=== PATIENT | female | born 1985 | race Caucasian/White ===

== ENCOUNTER → 2016-12-28 | Day surgery (SDC) | payer BC ==
[~2016-12-28] VITALS: Ht 167.6 cm; Wt 81.6 kg
[2016-12-28] VITALS (9 sets, daily range): BP systolic 114–135; BP diastolic 62–81
[~2016-12-28] MED LIST: DiphenhydrAMINE 50mg/ml Inj IVP PRN; HYDROmorphone 1mg/ml Carpuject SUBQ PRN; Hydromorphone 0.5mg/0.5ml inj IVP PRN; Ketorolac 30mg Inj IV PRN; Ketorolac 30mg Inj ONE; LR 1000ml 1,000 ML IVLG SCH; LR 1000ml ONE; Meperidine 25mg/ml Inj IV PRN; Metoclopramide 10mg/2ml Inj IVP PRN; Midazolam 2mg/2ml Inj ONE; NKM; Propofol 10mg/ml 20ml IV ONE; Sorbitol 2000ml Irrigation IRRIG ONE; Sterile Water Irrig 1000ml IRRIG ONE; cefOXitin 1gm Inj ONE; cefOXitin Sod 2 GM in D5W 110 ML IVPB ONE; fentaNYL 100 mcg/2 mL IV ONE
--- NOTE | 2016-12-28 02:08 | History and Physical Report ---
DATE OF ADMISSION: 12/28/2016 PREOPERATIVE DIAGNOSES: Heavy bleeding with multiple submucosal fibroids. HISTORY OF PRESENT ILLNESS: This patient has been my patient for the last couple of years. She presented to me during . Post delivery when she began to menstruate, she noted much heavier bleeding and presented complaining of heavy regular periods. She also is desirous of . On examination, her uterus was enlarged and irregular. An ultrasound was performed on 11/29/2016 consistent with multiple fibroids, largest 3.6 cm and at least two were submucosal. The patient was consented and decision was made to proceed with hysteroscopic resection of fibroids. PAST MEDICAL HISTORY: None. PAST SURGICAL HISTORY: x1. ALLERGIES: None. SOCIAL HISTORY: The patient does not drink or smoke. She lives with her and two young kids. PHYSICAL EXAMINATION: VITAL SIGNS: Height 6 feet and 4 inches, weight 205, blood pressure 144/88, heart rate 78, respiratory rate 20. HEAD AND NECK: Pupils are equal and reactive to light. LUNGS: Clear to auscultation bilaterally. CARDIAC: Regular rate and rhythm. ABDOMEN: Soft, nondistended, and nontender. PELVIC: A 14-week fibroid irregular uterus. Bilateral adnexa within normal limits. RECTAL: No masses. No nodularities. EXTREMITIES: No cords. No cyanosis. No edema. LABORATORY AND DIAGNOSTIC DATA: CBC on 12/24/2016 consistent with white count 9.3, hemoglobin 12.2, and platelets 362,000. The patient's beta-HCG is negative. ASSESSMENT: This is a 31-year-old G2, P2 with symptomatic uterine fibroid most likely submucosal. PLAN: Hysteroscopy and resection of submucosal fibroid with a resectoscope. Rima Wisdom M.D. DR: Gillian JOB#: [id number] CC:
--- NOTE | 2016-12-28 07:48 | Anethesia Preoperative Eval ---
Anesthesia Pre-op PMH/ROS General Date of Evaluation: Dec 28, 2016 Time of Evaluation: 07:48 Anesthesiologist: Raymundo ASA Score: ASA 2 Mallampati Score Class I : Soft palate, uvula, fauces, pillars visible Class II: Soft palate, uvula, fauces visible Class III: Soft palate, base of uvula visible Class IV: Only hard plate visible Mallampati Classification: Class II Surgeon: Artis Diagnosis: Uterine fibroids Surgical Procedure: D&C Hysteroscopy Fibroid resection Anesthesia History: none Family History: no anesthesia problems Allergies: Coded Allergies: No Known Allergies (Unverified , 12/26/16) Medications: see eMAR Past Medical History Cardiovascular: Denies: CAD, HTN, [place], arrhythmia, other, valve dz Pulmonary: Denies: COPD, PURNIMA, asthma, other Gastrointestinal/Genitourinary: Reports: GERD - mild, Denies: CRI, ESRD, other Neurologic/Psychiatric: Denies: CVA, TIA, dementia, depression/anxiety, other Endocrine: Denies: DM, hypothyroidism, other, steroids HEENT: Denies: LITTLE TRAVERSE (L), LITTLE TRAVERSE (R), cataract (L), cataract (R), glaucoma, other Hematology/Immune: Denies: DVT, anemia, bleeding disorder, other Musculoskeletal/Integumentary: Denies: DDD, DJD, OA, RA, edema, other Other: other - overweight PMH Narrative: as above PSxH Narrative: Anesthesia Pre-op Phys. Exam Physician Exam Last Vital Signs Date Time Temp Pulse Resp B/P Pulse Ox O2 Delivery O2 Flow Rate FiO2 12/28/16 06:24 97.9 81 20 114/62 98 Room Air Constitutional: NAD Neurologic: CN 2-12 intact Cardiovascular: RRR, no M/R/G Respiratory: CTA Gastrointestinal: S/NT/ND Airway Exam Mallampati Score: Class II MO: full Neck: flexible ROM: full Teeth: intact Dentures: no lower, no upper Anesthesia Pre-op A/P Labs see chart Urine Test Test 12/28/16 06:25 Urine HCG, Qualitative Negative Risk Assessment & Plan Assessment: ASA 2 Plan: GA with LMA PONV prevention Status Change Before Surgery: No Pre-Antibiotics Drug: Cefoxitin 1 gr. Given Within 1 Hr of Incision: Yes Time Given: 08:12 AV FAITH M.D. Dec 28, 2016 07:48
--- NOTE | 2016-12-28 08:03 | Pre-Procedure Note/Attestation ---
Pre-Procedure Note/Attestation Complete Prior to Procedure Planned Procedure: not applicable Procedure Narrative: Hysteroscopy, resection of submucousal fibroid, dilation and curettage Indications for Procedure Pre-Operative Diagnosis: metromenorhagia, symptomatic fibroids Attestation I attest that I discussed the nature of the procedure; its benefits; risks and complications; and alternatives (and the risks and benefits of such alternatives ), prior to the procedure, with the patient (or the patient's legal primary care sales representative). I attest that, if there was a reasonable possibility of needing a blood transfusion, the patient (or the patient's legal primary care sales representative) was given the [place] [employer] standardized written summary, pursuant to the Kunal Hilt[place] Blood Safety Act ([place] Health and Safety Code # 1645, as amended). I attest that I re-evaluated the patient just prior to the surgery and that there has been no change in the patient's H&P, except as documented below: RADHA DURAN Dec 28, 2016 08:03
--- NOTE | 2016-12-28 08:48 | Brief Operative Note ---
Immediate Post Operative Note Operative Note Pre-op Diagnosis: metromenorhagia, symptomatic fibroids Post-op Diagnosis: same as pre-op Surgeon: norberto Anesthesiologist: donnie Anesthesia: general Specimen: yes Complications: none Condition: stable Fluids: 100 cc sorbitol deficit Estimated Blood Loss: minimal Drains: none Implant(s) used?: No RADHA DURAN Dec 28, 2016 08:48
--- NOTE | 2016-12-28 09:04 | Immediate Post-Op Evaluation ---
Immediate Post-Op Evalulation Immediate Post-Op Evalulation Procedure: D&C Hysteroscopy Fibroid resection Date of Evaluation: Dec 28, 2016 Time of Evaluation: 09:02 IV Fluids: 1100 Blood Products: none Estimated Blood Loss: 50 Urinary Output: 150 Blood Pressure Systolic: 125 Blood Pressure Diastolic: 81 Pulse Rate: 65 Respiratory Rate: 20 O2 Sat by Pulse Oximetry: 99 Temperature (Fahrenheit): 97.5 Pain Score (1-10): 1 Nausea: No Vomiting: No Complications none Patient Status: reacts, patent, none Hydration Status: adequate AV FAITH M.D. Dec 28, 2016 09:04
--- NOTE | 2016-12-28 09:48 | 48 Hour Post Anesthesia Eval ---
Post Anesthesia Evaluation Procedure: D&C Hysteroscopy Fibroid resection Date of Evaluation: Dec 28, 2016 Time of Evaluation: 09:47 Blood Pressure Systolic: 124 0: 68 Pulse Rate: 72 Respiratory Rate: 20 Temperature (Fahrenheit): 97.6 O2 Sat by Pulse Oximetry: 99 Airway: patent Nausea: No Vomiting: No Pain Intensity: 2 Hydration Status: adequate Cardiopulmonary Status: stable Mental Status/LOC: patient returned to baseline Follow-up Care/Observations: n/a Post-Anesthesia Complications: none Follow-up care needed: ready to discharge AV FAITH M.D. Dec 28, 2016 09:48
--- NOTE | 2016-12-28 19:18 | Operative Note - Dictated ---
DATE OF OPERATION: 12/28/2016 PREOPERATIVE DIAGNOSIS: Metromenorrhagia and submucosal fibroids. POSTOPERATIVE DIAGNOSIS: Metromenorrhagia and submucosal fibroids. PROCEDURE: Dilation and curettage hysteroscopy with hysteroscopic myomectomy. ANESTHESIA: General. ANESTHESIOLOGIST: Cesar Fonseca M.D. SURGEON: Rima Wisdom M.D. INTERNAL RECRUITER: None. ESTIMATED BLOOD LOSS: Minimal. PROCEDURE IN DETAIL: After ensuring informed consent, the patient was taken to the operating room where general anesthesia was induced. The patient was sterilely prepped and draped. Weighted speculum was placed in the vagina. Cervix was grasped with a tenaculum and easily dilated to 10 Hegar dilator. Resectoscope was placed inside the uterine cavity. Uterine cavity was distended with sorbitol. A submucosal fibroid was observed. It was easily removed with a Endoloop. Curettage was performed. Excellent hemostasis was assured. The resectoscope was removed. Specimens were sent to pathology. At the end of the procedure, all instrument and lap count was correct x2 and the patient was taken to the recovery room in stable condition. The sorbitol deficit was less than 100cc. Rima Wisdom M.D. DR: PAVEL JOB#: [id number] CC: TERE
== END | disposition home or self-care (01) ==
LOC: SUR 05:48
DX: D25.9 Leiomyoma of uterus, unspecified (principal); N92.1 Excessive and frequent menstruation with irregular cycle; N71.1 Chronic inflammatory disease of uterus; K21.9 Gastro-esophageal reflux disease without esophagitis; E66.3 Overweight
CPT/HCPCS: 58561; 81025; J0690; J0694; J1885; J2250; J2405; J2704; J3010; J7120; 94003; 94150